=== PATIENT | male | born 1945 | race Caucasian/White ===

== ENCOUNTER 2017-01-09 06:38 | Inpatient (IN) | payer MEDICARE, BC ==
[~2017-01-09 06:38] MED LIST: CARDIZEM CD240 M1 PO; LEVOTHYROXINE100 MC1 PO; LIPITOR40 M1 PO; LOSARTAN-HCTZ1 EAC4 PO; PROTONIX40 M2 PO; TYLENOL EXTRA500 M1 PO
[2017-01-09 07:55] LABS: URINE BILIRUBIN SMALL (NEG); URINE BLOOD NEGATIVE (NEG); URINE GLUCOSE (UA) NEGATIVE (NEG); URINE KETONE SMALL (NEG); URINE LEUKOCYTE ESTERASE POSITIVE (NEG); URINE NITRITE NEGATIVE (NEG); URINE PROTEIN SMALL (NEG); URINE SPECIFIC GRAVITY 1.015 (1.003-1.030)
[2017-01-09 07:59] LABS: URINE COLOR YELLOW
[2017-01-09 08:00] LABS: URINE APPEARANCE CLEAR
[2017-01-09 08:08] LABS: URINE EPITHELIAL CELLS 0-2 /[HPF] (0-10); URINE RBC 0-1 /[HPF] (0-5); URINE WBC 0-2 /[HPF] (0-5)
[2017-01-09 08:09] LABS: URINE BACTERIA 1+; URINE MUCUS 1+
[2017-01-09] MEDS ORDERED: CALCIUM CARBON600 M2 PO (08:18)
[2017-01-09] MEDS ORDERED: NIASPAN500 M1 PO (08:18)
[2017-01-09] MEDS ORDERED: MULTIPLE VITAM1 EAC3 PO (08:19)
[2017-01-09] MEDS ORDERED: VITAMIN C1000 M1 PO (08:19)
[2017-01-09] MEDS ORDERED: FISH OIL 1,2001 EAC4 PO (08:19)
[2017-01-09] MEDS ORDERED: ALEVE220 M3 PO (08:20)
[2017-01-09] MEDS ORDERED: VITAMIN B-12250 MC2 PO (08:21)
[2017-01-09] MEDS ORDERED: VITAMIN D31000 UNI3 PO (08:21)
[2017-01-10] MEDS ORDERED: NORCO 5-325 TA1 EACH PO (08:42)
[2017-01-10] MEDS ORDERED: MOBIC7.5 M2 PO (08:53)
[2017-01-10] MEDS ORDERED: MELOXICAM7.5 M1 PO (08:55)
[2017-01-10] MEDS ORDERED: CYCLOBENZAPRINE5 M1 PO (09:00)
== END 2017-01-10 10:10 | DRG 473 ==
LOC: SHSB 06:38 → ORE 10:25 → PACU 13:24 → 5EC 14:45
PROVIDERS: ADMIT Orthopaedic Surgery
PROC: 0RT30ZZ Resection of Cervical Vertebral Disc, Open Approach (ICD-10-PCS; principal; 2017-01-09)
PROC: 0RG10A0 Fusion of Cervical Vertebral Joint with Interbody Fusion Device, Anterior Approach, Anterior Column, Open Approach (ICD-10-PCS; principal; 2017-01-09)
DX: M47.12 Other spondylosis with myelopathy, cervical region (principal); I10 Essential (primary) hypertension; E03.9 Hypothyroidism, unspecified; D64.9 Anemia, unspecified; E78.5 Hyperlipidemia, unspecified; Z87.891 Personal history of nicotine dependence; Z82.49 Family history of ischemic heart disease and other diseases of the circulatory system
CPT/HCPCS: J0690; J1650